=== PATIENT | female | born 1970 | race African-American/Black ===

== ENCOUNTER 2022-10-21 02:55 | Emergency (ER) | payer MEDICAID ==
[~2022-10-21] VITALS: Ht 170.2 cm; Wt 87.0 kg
[2022-10-21 03:06] VITALS: BP 127/87
[2022-10-21] MEDS ORDERED: ACETAMINOPHEN 325MG TABLET PO ONE (06:00)
== END 2022-10-21 07:34 | disposition home or self-care (01) ==
LOC: ER 02:55
DX: S73.192A Other sprain of left hip, initial encounter (principal); V49.49XA Driver injured in collision with other motor vehicles in traffic accident, initial encounter; Y93.89 Activity, other specified; Y92.488 Other paved roadways as the place of occurrence of the external cause
CPT/HCPCS: 73502; 99283